=== PATIENT | female | born 1960 | race Caucasian/White ===

== ENCOUNTER → 2016-06-11 | Outpatient (CLI) | payer OTHER ==
--- NOTE | 2016-06-11 16:39 | CT ---
EXAMINATION TYPE: CT sinus wo con DATE OF EXAM: 06/11/2016 3:57 PM COMPARISON: NONE HISTORY: 56-year-old female complains of repeated sinus infections. CT DLP: 619 mGycm Automated exposure control for dose reduction was used. TECHNIQUE: Noncontrast axial views of the paranasal sinuses were obtained. Coronal reconstructions pe rformed. FINDINGS: Mild mucosal thickening right maxillary sinus. Moderate to severe mucosal thickening left maxillary s inus with some rounded density and suggestion of air-fluid level. Some intrinsic calcifications are a lso present within the left maxillary sinus. Ethmoid air cells, frontal sinuses, sphenoid sinuses are clear. Reactive shantanu- osteogenesis is not seen. There is no destruction of the osseous iglesias of the paranasal sinuses. No stranding within the retromaxillary fat. There is opacification of the left osteomeatal complex. The imaged brain shows mild atrophy. Skull base and orbits are normal in appearance. Visualized mastoid air cells and middle ear cavities are well pneumatized. Reformatted images confirm above findings. IMPRESSION: 1. Severe chronic left maxillary sinus disease, possibly with polyposis. There may be superimposed ac [place] sinusitis. Intrinsic calcifications can be seen in the setting of superimposed aspergillus infect ion. 2. Mild chronic right maxillary sinus disease.
== END | disposition home or self-care (01) ==
LOC: RADCTMAIN 15:36
PROVIDERS: ATTEND Otolaryngology Facial Plastic Surgery
DX: J32.0 Chronic maxillary sinusitis (principal)
CPT/HCPCS: 70486

== ENCOUNTER → 2016-07-31 | Outpatient (CLI) | payer OTHER ==
--- NOTE | 2016-07-31 15:56 | XR ---
Right elbow HISTORY: Elbow pain, trauma 3 views of the right elbow Bone mineralization, joint spaces and alignment are maintained. No joint effusion. IMPRESSION: No fracture or dislocation is evident, follow-up as indicated.
--- NOTE | 2016-07-31 15:56 | XR ---
Cervical spine HISTORY: Neck pain, trauma and pain 5 views of the cervical spine No comparisons From encroachment present on the right at C5-6. Minimal spurring causes slight foraminal encroachment at C6-7 on the left. Retrolisthesis grade 1 C5-6, C6-7 with associated loss of disc height, spondylo sis. Reversal of the normal cervical lordosis may be due to muscle spasm. Cervical vertebral bodies s how preserved height and bone mineralization. IMPRESSION: Degenerative disc disease and foraminal encroachment.
--- NOTE | 2016-07-31 15:57 | XR ---
Right shoulder HISTORY: Right shoulder pain, trauma 3 views of the right shoulder. No comparisons There is hypertrophic change at the acromioclavicular joint. Alignment, bone mineralization, joint sp aces are maintained. Right lung apex as visualized is normal. IMPRESSION: No acute fracture or dislocation is evident.
== END | disposition home or self-care (01) ==
LOC: RADXRMAIN 14:47
PROVIDERS: ATTEND Family Medicine
DX: M50.30 Other cervical disc degeneration, unspecified cervical region (principal); M25.521 Pain in right elbow; M25.511 Pain in right shoulder
CPT/HCPCS: 72050

== ENCOUNTER → 2016-08-20 | Outpatient (CLI) | payer OTHER ==
--- NOTE | 2016-08-21 16:20 | MR ---
EXAMINATION TYPE: MR cervical spine wo con DATE OF EXAM: 08/20/2016 5:20 PM COMPARISON: Plain film 31 July 2016 HISTORY: Neck and rt arm pain TECHNIQUE: Multiplanar, multisequence images of the cervical spine were acquired. C2-C3: No evidence for degenerative disc disease. No disc bulge/herniation or protrusion. No Canal stenosis. Foramina are patent bilaterally. C3-C4: Foraminal encroachment is present on the right due to uncovertebral joint hypertrophy, facet a rthropathy, no significant central canal stenosis, no sizable disc herniation C4-C5: Broad-based posterior disc bulge causes minimal anterior mass effect on the thecal sac. There is no significant foraminal encroachment or central stenosis. C5-C6: Spondylosis is present, posterior extension of endplate disc complex is eccentric towards the right causing foraminal encroachment, there is some mild anterior mass effect on the thecal sac, no s ignificant central stenosis, posterior extension of endplate disc complex causes anterior mass effect on the thecal sac. C6-C7: Broad-based posterior disc bulge, posterior extension of endplate disc complex causes anterior mass effect on the thecal sac, mild central stenosis. Foraminal encroachment is present left greater than right. C7-T1: Posterior extension of endplate disc complex causes mild anterior mass effect on the thecal sa c. No significant central stenosis or foraminal encroachment. Cervical segments are intact. There is normal alignment. Cervical spinal cord is of normal signal. Craniovertebral junction relationships are within normal limits. There may be a spinal curvature. IMPRESSION: Degenerative disc disease, multilevel foraminal encroachment.
== END | disposition home or self-care (01) ==
LOC: RADMRIMAIN 16:48
PROVIDERS: ATTEND Family Medicine
DX: M50.30 Other cervical disc degeneration, unspecified cervical region (principal)
CPT/HCPCS: 72141

== ENCOUNTER → 2016-10-28 | Outpatient (CLI) | payer OTHER ==
--- NOTE | 2016-10-28 23:25 | MR ---
EXAMINATION TYPE: MR lumbar spine wo con DATE OF EXAM: 10/28/2016 COMPARISON: NONE HISTORY: LBP in center and into rt hip, no trauma TECHNIQUE: Multiplanar, multisequence images of the lumbar spine were acquired. Findings The vertebra have normal alignment. There is mild narrowing and decreased signal in the disc at L5-S1 . There are small posterior disc bulges in the midline at L4-5 and L5-S1 without impingement on the n eural elements. There is developmentally adequate spinal canal. There is no paraspinal mass. Sacroili ac joints appear normal. The neural foramina appear fairly well maintained. I see no bony destructive process. There is no compression fracture. IMPRESSION: Small posterior disc bulging and herniation at L4-5 and L5-S1 without compromise of the spinal canal. No spinal stenosis. No fracture.
== END | disposition home or self-care (01) ==
LOC: RADMRIMAIN 21:33
PROVIDERS: ATTEND Specialist
DX: M51.27 Other intervertebral disc displacement, lumbosacral region (principal)
CPT/HCPCS: 72148

== ENCOUNTER → 2018-04-21 | Outpatient (CLI) | payer OTHER ==
--- NOTE | 2018-04-21 15:49 | BD ---
EXAMINATION TYPE: Axial Bone Density DATE OF EXAM: 04/21/2018 COMPARISON: NONE CLINICAL HISTORY: post menopausal. Osteoporosis screening. Height: 5'2 Weight: 166 FRAX RISK QUESTIONS: Secondary Osteoporosis: RISK FACTORS HISTORY OF: History of Wrist Fracture: left When: 2014 Postmenopausal woman: y MEDICATIONS: Additional Medications: acne, sinus, pain Additional History: EXAM MEASUREMENTS: Bone mineral densitometry was performed using the [employer] System. Bone mineral density as measured about the Lumbar spine is: ----- L1-L4(G/cm2): 1.271 T Score Values are as follows: ----- L2: 0.2 ----- L3: 1.6 ----- L4:1.5 ----- L1-L4: 0.8 Bone mineral density about the R hip (g/cm2): 0.939 Bone mineral density about the L hip (g/cm2): 1.007 T Score values are as follows: -----R Neck: -0.7 -----L Neck: -0.2 -----R Total: 0.4 -----L Total: 0.6 IMPRESSION: Normal (Values between +1 and -1 indicate normal bone mass). Consider repeating this study in 5 year s or sooner if there is some new clinical indication. NOTE: T-SCORE=SD OF THE YOUNG ADULT MEAN.
== END | disposition home or self-care (01) ==
LOC: RADBDWWP 14:13
PROVIDERS: ATTEND Obstetrics & Gynecology
DX: Z13.820 Encounter for screening for osteoporosis (principal)
CPT/HCPCS: 77080

== ENCOUNTER → 2019-04-16 | Outpatient (CLI) | payer OTHER ==
--- NOTE | 2019-04-16 15:12 | XR ---
EXAMINATION TYPE: XR lumbar spine 2 or 3V DATE OF EXAM: 04/16/2019 COMPARISON: None HISTORY: Low back pain TECHNIQUE: Three-view lumbar spine FINDINGS: There is mild narrowing posterior disc space of L4-5 and L3-4. Loss of disc height is prese nt L5-S1. There 5 lumbar-type vertebral bodies. Pedicles are intact. Vertebral body heights are prese rved. Alignment is normal IMPRESSION: 1. Degenerative disc changes within the mid to lower lumbar spine discussed above
== END | disposition home or self-care (01) ==
LOC: RADXRMAIN 14:46
PROVIDERS: ATTEND Internal Medicine
DX: M47.16 Other spondylosis with myelopathy, lumbar region (principal)
CPT/HCPCS: 72100

== ENCOUNTER → 2019-04-20 | Outpatient (CLI) | payer OTHER ==
--- NOTE | 2019-04-20 13:52 | MR ---
EXAMINATION TYPE: MR lumbar spine wo con DATE OF EXAM: 04/20/2019 COMPARISON: None HISTORY: Low back pain TECHNIQUE: Multiplanar, multisequence images of the lumbar spine were acquired. FINDINGS: The lumbar spine vertebral bodies maintain normal vertebral body heights. There is very min imal retrolisthesis of L5 on S1 of 3 mm, likely on a degenerative basis. Intervertebral disc space na rrowing is seen at this level with Modic type II endplate changes of the inferior endplate of L5. Rem ainder of the bone marrow signal of the lumbar spine is unremarkable. Conus medullaris terminates at L1. There is a too small to accurately characterize left renal lesion measures 7 mm and is T2 hyperin tense and T1 hypointense. This is unchanged from 2017 and likely represents a small cyst. L1-L2: Disc desiccation is seen without spinal canal stenosis nor neural foraminal narrowing. L2-L3: There is disc desiccation and a small left eccentric broad-based disc bulge without spinal can al stenosis or neural foraminal narrowing. Mild facet arthropathy. L3-L4: There is a small broad-based disc bulge, ligamentum flavum buckling and facet arthropathy resu lting in very minimal bilateral neural foraminal narrowing without spinal canal stenosis. L4-L5: Small central disc herniation is redemonstrated with 2 mm cranial subligamentous disc extrusio n. Additionally there is a broad-based disc bulge, ligamentum flavum buckling and facet arthropathy r esults in mild bilateral neural foraminal narrowing and minimal narrowing of the ventral subarachnoid space. No significant spinal canal stenosis. L5-S1: Again there is a small central disc herniation contacting the ventral thecal sac without signi ficant spinal canal stenosis. Broad-based disc bulges also seen resulting in mild bilateral neural fo raminal narrowing. Mild facet arthropathy. IMPRESSION: 1. Similar-appearing small central disc herniations at L4-5 and L5-S1 in comparison to 2017. There is very minimal subligamentous extrusion at L4-L5. No spinal canal stenosis. 2. Mildly progressed degenerative disc disease of the lumbar spine in comparison to 2017.
== END | disposition home or self-care (01) ==
LOC: RADMRIMAIN 12:45
PROVIDERS: ATTEND Nurse Practitioner Family
DX: M51.36 Other intervertebral disc degeneration, lumbar region (principal); M51.26 Other intervertebral disc displacement, lumbar region
CPT/HCPCS: 72148

== ENCOUNTER → 2022-07-31 | Outpatient (CLI) | payer MEDICARE, OTHER ==
[2022-07-31 11:34] VITALS: BP 111/72; PULSE 71; RESP 18; TEMP 98.6
== END ==
LOC: PNWHC3 07-15 12:55
PROVIDERS: ATTEND Specialist
DX: M54.12 Radiculopathy, cervical region (principal); M47.816 Spondylosis without myelopathy or radiculopathy, lumbar region
CPT/HCPCS: 99211

== ENCOUNTER → 2023-12-18 | Outpatient (CLI) | payer MEDICARE, OTHER | END | disposition home or self-care (01) | LOC: LABPRL 12:00 | PROVIDERS: ATTEND Dermatology | DX: L94.8 Other specified localized connective tissue disorders (principal); J30.0 Vasomotor rhinitis; J32.8 Other chronic sinusitis; Z79.899 Other long term (current) drug therapy | CPT/HCPCS: 87070; 87205 ==